=== PATIENT | male | born 1990 | race Two or more races ===

== ENCOUNTER 2021-08-30 18:09 | Emergency (ER) | payer SELFPAY ==
[2021-08-30] MEDS ORDERED: Tetracaine HCl/PF 0.5% 4 ML Bottle EYELF ONE (18:27)
[2021-08-30] MEDS ORDERED: Tetracaine HCl/PF 0.5% 4 ML Bottle ONE (18:27)
[2021-08-30] MEDS ORDERED: Ciprofloxacin 0.3% Ophth Soln 5 ML Bottle EYELF SCH (18:45)
== END 2021-08-30 18:49 ==
LOC: KA.ED 18:09
DX: S05.02XA Injury of conjunctiva and corneal abrasion without foreign body, left eye, initial encounter (principal); W22.09XA Striking against other stationary object, initial encounter
CPT/HCPCS: 99283; A9270-GY